=== PATIENT | male | born 1930 | race Caucasian/White ===

== ENCOUNTER → 2016-11-11 | Outpatient (CLI) | payer OTHER | LOC: BHFA 16:15 | PROVIDERS: ATTEND Internal Medicine Cardiovascular Disease | DX: R06.00 Dyspnea, unspecified (principal); I10 Essential (primary) hypertension ==

== ENCOUNTER 2017-05-10 11:48 | Emergency (ER) | payer OTHER ==
[2017-05-10 11:57] VITALS: RESP 18
--- NOTE | 2017-05-10 12:57 | EDPHY ---
H & P Stated Complaint: Dx'd with flu last week;still coughing Time Seen by Provider: 05/10/17 12:54 HPI/ROS: CHIEF COMPLAINT: Persistent cough with recent influenza infection HISTORY OF PRESENT ILLNESS: The patient presents to the ED with complaints of persistent cough for the past several days. He was diagnosed with influenza and is currently on Tamiflu. The patient is also using Mucinex and Tessalon Perles. He reports his cough has been worse at night. He denies any pleuritic chest pain, asymmetric calf pain or swelling, edema or additional acute complaints. The patient denies history of significant lung disease. The patient denies any abdominal pain, nausea, vomiting or diarrhea. REVIEW OF SYSTEMS: A comprehensive 10 point review of systems is otherwise negative aside from elements mentioned in the history of present illness. Source: Patient - Medical/Surgical History Hx Asthma: No Hx Chronic Respiratory Disease: No Hx Diabetes: No Hx Cardiac Disease: Yes Hx Renal Disease: No Hx Cirrhosis: No Hx Alcoholism: No Hx HIV/AIDS: No Hx Splenectomy or Spleen Trauma: No Other PMH: Stent x2, DWAIN, Glaucoma, HTN, hearing deficit, PVD, Hyperlipidemia, DWAIN - Social History Smoking Status: Never smoked - Physical Exam Exam: General Appearance: Alert, no distress Eyes: Pupils equal and round no pallor or injection ENT, Mouth: Mucous membranes moist Respiratory: Scant expiratory wheezing Cardiovascular: Regular rate and rhythm Gastrointestinal: Abdomen is soft and nontender, no masses, bowel sounds normal Neurological: A&O, normal motor function, normal sensory exam, normal cranial nerves Skin: Warm and dry, no rashes Musculoskeletal: Neck is supple nontender Extremities: symmetrical, full range of motion Constitutional: Initial Vital Signs Temperature (C) 36.7 C 05/10/17 11:53 Heart Rate 78 05/10/17 11:53 Respiratory Rate 18 05/10/17 11:53 Blood Pressure 158/86 H 05/10/17 11:53 O2 Sat (%) 90 L 05/10/17 11:53 O2 Delivery Mode Room Air Allergies/Adverse Reactions: No Known Allergies Allergy (Verified 05/10/17 11:53) Home Medications: Medication Instructions Recorded Atenolol [Tenormin 25 mg (*)] 12.5 mg PO DAILY 09/14/13 Latanoprost 0.005% [Xalatan 0.005% 1 drops EACHEYE HS 09/14/13 (*)] PARoxetine HCL [Paxil 10mg (*)] 10 mg PO DAILY 09/14/13 Tamsulosin HCl 0.4 mg PO HS 09/14/13 amLODIPine BESYLATE [Norvasc 2.5 2.5 mg PO HS 09/14/13 mg (*)] Acetaminophen [Tylenol 325mg (*)] 650 mg PO Q4 PRN #0 tab 09/15/13 Aspirin EC [Aspirin EC 325 mg (*)] 325 mg PO DAILY #0 tab 09/15/13 Plavix 08/26/14 Albuterol [Ventolin Hfa Inhaler] 2 puffs IH QID PRN #1 mdi 05/10/17 Atorvastatin Calcium [Lipitor 40 40 mg PO 05/10/17 mg (*)] Benzonatate [Tessalon Pearles (RX)] 100 mg PO 05/10/17 Hydrochlorothiazide [HCTZ (*)] 25 mg PO DAILY 05/10/17 Oseltamivir Phosphate [Tamiflu 75 75 mg PO 05/10/17 mg (*)] Testosterone Cypionate [Testone 200 mg IM 05/10/17 Cik] Valsartan [Diovan (*)] 80 mg PO 05/10/17 Medical Decision Making - Diagnostics Imaging Results: Chest x-ray PA lateral: Images reviewed by myself, negative for focal infiltrate. Formal interpretation by Radiology pending. ED Course/Re-evaluation: The patient presents to the ED with cough in the setting of a recently diagnosed influenza infection. There is no evidence of a obvious pneumonia on his chest x-ray. The patient is well-appearing with stable vital signs. He has no hypoxemia. The patient will be discharged home with a prescription for an albuterol inhaler. Differential Diagnosis: Differential diagnosis considered includes asthma, bronchitis, pneumonia Departure - Departure Disposition: Home, Routine, Self-Care Clinical Impression: Acute bronchitis, Influenza Condition: Good Instructions: Influenza (ED) Additional Instructions: 1. Continue your regular medications as prescribed by Dr. Valenzuela. 2. Use albuterol inhaler 2 puffs every 2-4 hours as needed for cough. 3. Return to the emergency department for markedly worsening symptoms or other concerns. Referrals: Darcy Valenzuela MD [Primary Care Provider] - As per Instructions
[2017-05-10 13:29] VITALS: BP 133/87; PULSE 70; TEMP 98.2; O2SAT 93
== END 2017-05-10 13:30 | disposition home or self-care (01) ==
DX: J20.9 Acute bronchitis, unspecified (principal); J11.1 Influenza due to unidentified influenza virus with other respiratory manifestations; I10 Essential (primary) hypertension; Z79.82 Long term (current) use of aspirin

== ENCOUNTER → 2017-10-06 | Outpatient (CLI) | payer OTHER | LOC: BHFA 10:15 | PROVIDERS: ATTEND Nurse Practitioner Adult Health | DX: I25.10 Atherosclerotic heart disease of native coronary artery without angina pectoris (principal); E78.5 Hyperlipidemia, unspecified; I10 Essential (primary) hypertension ==

== ENCOUNTER 2018-02-14 08:15 | Inpatient (IN) | payer OTHER ==
--- NOTE | 2018-02-14 08:19 | EDPHY ---
H & P Time Seen by Provider: 02/14/18 08:17 HPI/ROS: CHIEF COMPLAINT: Chest tightness HISTORY OF PRESENT ILLNESS: Patient has been having intermittent left shoulder for the past 2 weeks. He thought it was due to using exercise machines at the gym, he goes there about twice a week to the [facility]. It is intermittent and not necessarily related to movement. Last night before midnight he tried to go to sleep but developed substernal chest pressure which kept him awake all night. Was associated with some extension of his left shoulder symptoms down his arm toward his hand. Not associated with coughing or change in his respiratory status or exertional shortness of breath. No nausea or vomiting or abdominal symptoms. On my evaluation the patient says his symptoms are pretty much gone. They were moderate last night but now almost 0. REVIEW OF SYSTEMS: Eye: no change in vision ENT: no sore throat Cardiac: No palpitations or syncope Pulmonary: No cough or hemoptysis Abdomen: no vomiting, diarrhea, abdominal pain Musculoskeletal: no back pain Skin: no rash Neuro: no headache Constitutional: no fever : no urinary symptoms A comprehensive 10 point review of systems is otherwise negative aside from elements mentioned in the history of present illness. PAST MEDICAL HISTORY: Dr. Mcguire note of 01/10/2015 personally reviewed includes coronary disease, anemia, anxiety, lung cancer, gout, hyperlipidemia, hypertension. Melanoma, left upper lung resection, bilateral hip replacements. LAD stenting in September [address] Viecnte Floyd. Social history: Nonsmoker General Appearance: Alert and conversant, cooperative. Eyes: No scleral icterus. ENT, Mouth: Normal mucous membranes. Respiratory: Normal respiratory effort, breath sounds equal, lungs are clear to auscultation. Speaks in full sentences. Cardiovascular: Regular rate and rhythm. Gastrointestinal: Abdomen is soft and non tender. No epigastric tenderness or Acosta sign. Neurological: Alert, face symmetric, normal motor and sensory in extremities. Skin: Some extremity venous stasis changes on the lower legs. Musculoskeletal: No calf tenderness. No bony tenderness on the left shoulder. Normal range of motion of the left shoulder without pain. Psychiatric: Not agitated. Emergency Department course/MDM: Oral aspirin, EKG and chest x-ray, troponin and D-dimer. 939: d-dimer < 0.1 x age, low pretest clinical suspicion for pulmonary embolism. Admission for risk stratification further evaluation of chest pain in this elderly man with known coronary disease. Smoking Status: Never smoked Constitutional: Initial Vital Signs Temperature (C) 37.5 C 02/14/18 08:22 Heart Rate 90 02/14/18 08:22 Respiratory Rate 16 02/14/18 08:22 Blood Pressure 160/93 H 02/14/18 08:22 O2 Sat (%) 89 L 02/14/18 08:22 O2 Delivery Mode Room Air O2 (L/minute) 2 Allergies/Adverse Reactions: No Known Allergies Allergy (Verified 02/14/18 08:22) Home Medications: Medication Instructions Recorded Atenolol [Tenormin 25 mg (*)] 12.5 mg PO DAILY 09/14/13 Latanoprost 0.005% [Xalatan 0.005% 1 drops EACHEYE HS 09/14/13 (*)] PARoxetine HCL [Paxil 10mg (*)] 10 mg PO DAILY 09/14/13 Tamsulosin HCl 0.4 mg PO HS 09/14/13 amLODIPine BESYLATE [Norvasc 2.5 2.5 mg PO HS 09/14/13 mg (*)] Acetaminophen [Tylenol 325mg (*)] 650 mg PO Q4 PRN #0 tab 09/15/13 Aspirin EC [Aspirin EC 325 mg (*)] 325 mg PO DAILY #0 tab 09/15/13 Plavix 08/26/14 Albuterol [Ventolin Hfa Inhaler] 2 puffs IH QID PRN #1 mdi 05/10/17 Atorvastatin Calcium [Lipitor 40 40 mg PO 05/10/17 mg (*)] Testosterone Cypionate [Testone 200 mg IM 05/10/17 Cik] Valsartan [Diovan (*)] 80 mg PO 05/10/17 Medical Decision Making - Diagnostics EKG Interpretation: 12-lead EKG interpreted by me; official reading is in computer system. My interpretation is sinus rhythm rate 90 with old anterior MT. No acute ST changes. Imaging Results: Imaging Impressions Chest X-Ray 02/14/18 08:43 Impression: 1. No acute process. 2. Stigmata of left lower lobectomy and coronary artery disease, unchanged since April 2017. 3. Chronic mild airways disease. Imaging: I viewed and interpreted images myself Differential Diagnosis: Differential diagnosis considered for chest pain including but not limited to myocardial ischemia, aortic dissection, pericarditis, pulmonary embolus, chest wall pain, pleural inflammation and pulmonary infectious causes. Consult/Admit Bed Type: Diez josé miguel Lara [facility] - Data Points Laboratory Results: Laboratory Results 02/14/18 08:25 18 08:25 02/14/18 02/14/18 02/14/18 08:32 08:25 08:25 WBC RBC Hgb Hct MCV MCH MCHC RDW Plt Count MPV Neut % (Auto) Lymph % (Auto) [place] % (Auto) Eos % (Auto) Baso % (Auto) Nucleat RBC Rel Count Absolute Neuts (auto) Absolute Lymphs (auto) Absolute Monos (auto) Absolute Eos (auto) Absolute Basos (auto) Absolute Nucleated RBC Immature Gran % Immature Gran # D-Dimer 0.87 ug/mLFEU H ug/mLFEU (0.00-0.50) Sodium 137 mEq/L mEq/L (135-145) Potassium 4.5 mEq/L mEq/L (3.3-5.0) Chloride 98 mEq/L mEq/L (97-110) Carbon Dioxide 31 mEq/l mEq/l (22-31) Anion Gap 8 mEq/L mEq/L (6-14) BUN 19 mg/dL mg/dL (7-23) Creatinine 1.1 mg/dL mg/dL (0.7-1.3) Estimated GFR > 60 Glucose 89 mg/dL mg/dL (70-100) Calcium 9.1 mg/dL mg/dL (8.5-10.4) POC Troponin I 0.01 ng/mL ng/mL (0.00-0.08) 02/14/18 08:25 WBC 9.18 10^3/uL 10^3/uL (3.80-9.50) RBC 5.77 10^6/uL 10^6/uL (4.40-6.38) Hgb 18.3 g/dL H g/dL (13.7-17.5) Hct 54.4 % H % (40.0-51.0) MCV 94.3 fL fL (81.5-99.8) MCH 31.7 pg pg (27.9-34.1) MCHC 33.6 g/dL g/dL (32.4-36.7) RDW 14.9 % % (11.5-15.2) Plt Count 208 10^3/uL 10^3/uL (150-400) MPV 10.7 fL fL (8.7-11.7) Neut % (Auto) 69.9 % % (39.3-74.2) Lymph % (Auto) 12.6 % L % (15.0-45.0) [place] % (Auto) 11.4 % % (4.5-13.0) Eos % (Auto) 4.8 % % (0.6-7.6) Baso % (Auto) 0.9 % % (0.3-1.7) Nucleat RBC Rel Count 0.5 % H % (0.0-0.2) Absolute Neuts (auto) 6.41 10^3/uL 10^3/uL (1.70-6.50) Absolute Lymphs (auto) 1.16 10^3/uL 10^3/uL (1.00-3.00) Absolute Monos (auto) 1.05 10^3/uL H 10^3/uL (0.30-0.80) Absolute Eos (auto) 0.44 10^3/uL H 10^3/uL (0.03-0.40) Absolute Basos (auto) 0.08 10^3/uL 10^3/uL (0.02-0.10) Absolute Nucleated RBC 0.05 10^3/uL H 10^3/uL (0-0.01) Immature Gran % 0.4 % % (0.0-1.1) Immature Gran # 0.04 10^3/uL 10^3/uL (0.00-0.10) D-Dimer Sodium Potassium Chloride Carbon Dioxide Anion Gap BUN Creatinine Estimated GFR Glucose Calcium POC Troponin I Medications Given: Discontinued Medications Aspirin (Aspirin) 324 mg PO EDNOW ONE Stop: 02/14/18 08:44 Last Admin: 02/14/18 08:46 Dose: 324 mg Point of Care Test Results: Chemistry 02/14/18 08:32 POC Troponin I 0.01 ng/mL ng/mL (0.00-0.08) Departure - Departure Disposition: [facility] Inpatient Acute Clinical Impression: Chest pain Condition: Good Referrals: Patient,NotPresent [Primary Care Provider] - As per Instructions
[2018-02-14] MEDS ORDERED: ASPIRIN 81 MG CHEWABLE TAB PO ONE (08:43)
--- NOTE | 2018-02-14 08:48 | CPEKG ---
Test Reason : OPEN Blood Pressure : / mmHG Vent. Rate : 090 BPM Atrial Rate : 090 BPM P-R Int : 169 ms QRS Dur : 081 ms QT Int : 307 ms P-R-T Axes : 072 032 057 degrees QTc Int : 376 ms Sinus rhythm Anteroseptal infarct, old Confirmed by Pedro Barnard ([id number]) on 02/14/2018 8:47:03 AM Referred By: Confirmed By:Pedro Barnard
[2018-02-14 09:02] LABS: PLATELET COUNT 208 10^3/uL (150-400)
[2018-02-14] MEDS ORDERED: ACETAMINOPHEN 325 MG TAB PO PRN (15:22)
--- NOTE | 2018-02-14 15:30 | PDGENHP ---
History and Physical - History of Present Illness 87 year old male with pmh of CAD status post multiple stents, HTN, BPH, DWAIN on CPAP, who presents to the ER with complaints of chest pain since the night before. He says that he has had some left shoulder pain for which he has been seeing physical therapy for the last few weeks. Then last night, while in bed he developed a midsternal chest pain that came on suddenly. He said that the pain was located in the middl eof his chest and at times radiated to his left arm. He rated the pain at a 4/10 in severity. The pain was constant. He felt that lying on his side seemed to relieve the pain somewhat. Nothing seemed to make the pain worse. He described the pain as a pressure type of pain. It did not feel like previous episodes of chest pain that he has had. He feels that the pain is much less at this point. he denied any new onset sob, cough, fevers , abdominal pain, Nausea or vomiting. His did mention that he has been more fatigued for the last few weeks but he has not had worsening erin. History Information - Allergies/Home Medication List Allergies/Adverse Reactions: No Known Allergies Allergy (Verified 02/14/18 08:22) Home Medications: Atenolol [Tenormin 25 mg (*)] 12.5 mg PO DAILY 09/14/13 [Last Taken 02/14/18] Latanoprost 0.005% [Xalatan 0.005% (*)] 1 drops EACHEYE HS 09/14/13 [Last Taken 02/13/18] PARoxetine HCL [Paxil 10mg (*)] 10 mg PO DAILY 09/14/13 [Last Taken 02/14/18] Tamsulosin HCl 0.4 mg PO HS 09/14/13 [Last Taken 02/13/18] amLODIPine BESYLATE [Norvasc 2.5 mg (*)] 2.5 mg PO HS 09/14/13 [Last Taken 02/13] Atorvastatin Calcium [Lipitor 40 mg (*)] 40 mg PO HS 05/10/17 [Last Taken ] Testosterone Cypionate [Testone Cik] 100 mg IM [id number] 05/10/17 [Last Taken ] Valsartan [Diovan (*)] 80 mg PO HS 05/10/17 [Last Taken 02/13/18] Aspirin EC [Aspirin EC 81 mg (*)] 81 mg PO DAILY 02/14/18 [Last Taken 02/14/18] C/E/Zn/Cu/OM3/DHA/EPA/LUT/ZEAX [Preservision Areds 2 Softgel] 1 each PO BID 05/03 [Last Taken Unknown] Chlorthalidone [Chlorthalidone 25 mg (*)] 25 mg PO DAILY 02/14/18 [Last Taken ] Clopidogrel Bisulfate [Clopidogrel] 75 mg PO DAILY 02/14/18 [Last Taken 02/14/18 ] I have personally reviewed and updated: family history, medical history, social history, surgical history - Past Medical History coronary artery disease (bph), cancer, glaucoma, hypertension - Social History Smoking Status: Never smoked Review of Systems Review of Systems: ROS: 10pt was reviewed & negative except for what was stated in HPI & below Physical Exam Physical Exam: Temp Pulse Resp BP Pulse Ox 36.7 C 72 16 134/70 H 92 02/14/18 15:12 02/14/18 15:12 02/14/18 15:12 02/14/18 15:12 02/14/18 15:12 O2 (L/minute) 2 Constitutional: no apparent distress Eyes: PERRL Ears, Nose, Mouth, Throat: moist mucous membranes Cardiovascular: regular rate and rhythym, no murmur, rub, or gallop Respiratory: no respiratory distress, clear to auscultation Gastrointestinal: normoactive bowel sounds, soft, non-tender abdomen, no palpable masses Skin: warm, normal color, no rashes or abrasions Musculoskeletal: full muscle strength Neurologic: AAOx3, CN II-XII Intact Psychiatric: interacting appropriately Lymph, Heme, Immunologic: no cervical LAD Lab Data & Imaging Review 02/14/18 08:25 02/14/18 08:25 WBC 9.18 10^3/uL (3.80-9.50) 02/14/18 08:25 RBC 5.77 10^6/uL (4.40-6.38) 02/14/18 08:25 Hgb 18.3 g/dL (13.7-17.5) H 02/14/18 08:25 Hct 54.4 % (40.0-51.0) H 02/14/18 08:25 MCV 94.3 fL (81.5-99.8) 02/14/18 08:25 MCH 31.7 pg (27.9-34.1) 02/14/18 08:25 MCHC 33.6 g/dL (32.4-36.7) 02/14/18 08:25 RDW 14.9 % (11.5-15.2) 02/14/18 08:25 Plt Count 208 10^3/uL (150-400) 02/14/18 08:25 MPV 10.7 fL (8.7-11.7) 02/14/18 08:25 Neut % (Auto) 69.9 % (39.3-74.2) 02/14/18 08:25 Lymph % (Auto) 12.6 % (15.0-45.0) L 02/14/18 08:25 [place] % (Auto) 11.4 % (4.5-13.0) 02/14/18 08:25 Eos % (Auto) 4.8 % (0.6-7.6) 02/14/18 08:25 Baso % (Auto) 0.9 % (0.3-1.7) 02/14/18 08:25 Nucleat RBC Rel Count 0.5 % (0.0-0.2) H 02/14/18 08:25 Absolute Neuts (auto) 6.41 10^3/uL (1.70-6.50) 02/14/18 08:25 Absolute Lymphs (auto) 1.16 10^3/uL (1.00-3.00) 02/14/18 08:25 Absolute Monos (auto) 1.05 10^3/uL (0.30-0.80) H 02/14/18 08:25 Absolute Eos (auto) 0.44 10^3/uL (0.03-0.40) H 02/14/18 08:25 Absolute Basos (auto) 0.08 10^3/uL (0.02-0.10) 02/14/18 08:25 Absolute Nucleated RBC 0.05 10^3/uL (0-0.01) H 02/14/18 08:25 Immature Gran % 0.4 % (0.0-1.1) 02/14/18 08:25 Immature Gran # 0.04 10^3/uL (0.00-0.10) 02/14/18 08:25 D-Dimer 0.87 ug/mLFEU (0.00-0.50) H 02/14/18 08:25 Sodium 137 mEq/L (135-145) 02/14/18 08:25 Potassium 4.5 mEq/L (3.3-5.0) 02/14/18 08:25 Chloride 98 mEq/L (97-110) 02/14/18 08:25 Carbon Dioxide 31 mEq/l (22-31) 02/14/18 08:25 Anion Gap 8 mEq/L (6-14) 02/14/18 08:25 BUN 19 mg/dL (7-23) 02/14/18 08:25 Creatinine 1.1 mg/dL (0.7-1.3) 02/14/18 08:25 Estimated GFR > 60 02/14/18 08:25 Glucose 89 mg/dL (70-100) 02/14/18 08:25 Calcium 9.1 mg/dL (8.5-10.4) 02/14/18 08:25 POC Troponin I 0.01 ng/mL (0.00-0.08) 02/14/18 08:32 Visualized and Interpreted Chest x-ray results: Yes Chest X-Ray results: no infiltrate Visualized and Interpreted imaging results: Yes EKG Interpretation: Positive for: normal sinsus rhythm Assessment & Plan Assessment: Chest pain (Acute)- Heart score at least 4, warranting further evaluation. CXR reviewed and no evidence of acute abnormality. ECG with NSR and no acute St/T wave changes. Troponin initially negative as well. examination reassuring and vitals stable as well. -admit telemetry -cycle troponins -check BNP -lexiscan with MPI in am, as patient unable to ambulate, has history of prior stents, and uses oxygen with any exertion. -consult cardiology if abnormal stress test. follows with Dr. Floyd -cardiac diet, I/O, CAD- history of multiple stents placed, Follows with Dr. Floyd from [facility]. On ARB, Plavix, asa, lipitor, atenolo. continue while in house HTN- on chlorthalidone, valsartan, norvasc and atenolol. BPH-on Flomax, should be fine to resume here Glaucoma- cont latanoprost Depression- on paxil. DWAIN- on CPAP with 2.5 litesr at HS. Will order while here.
--- NOTE | 2018-02-14 17:50 | CPEKG ---
Test Reason : OPEN Blood Pressure : / mmHG Vent. Rate : 075 BPM Atrial Rate : 075 BPM P-R Int : 171 ms QRS Dur : 079 ms QT Int : 325 ms P-R-T Axes : 080 069 055 degrees QTc Int : 363 ms Sinus rhythm Possible left atrial abnormality Can't entirely rule out old anteroseptal [place], but more likely lead positioning Confirmed by David Martinez ([id number]) on 02/14/2018 5:49:51 PM Referred By: Confirmed By:David Martinez
[2018-02-14] MEDS: TAMSULOSIN HCL 0.4 MG CAP PO SCH (20:47)
[2018-02-14] MEDS: ATORVASTATIN CALCIUM 40 MG TAB PO SCH (20:47)
[2018-02-14] MEDS: PRESERVISION AREDS2 FORMULA EYE VIT 1 EACH PO SCH (20:47)
[2018-02-14] MEDS: LATANOPROST 0.005% 2.5 ML OPHT DROPS EACHEYE SCH (20:48)
[2018-02-14] MEDS: VALSARTAN 80 MG TAB PO SCH (22:23)
[2018-02-15] MEDS: ATENOLOL 25 MG TAB PO SCH (09:01)
[2018-02-15] MEDS: CLOPIDOGREL BISULFATE 75 MG TAB PO SCH (09:01)
[2018-02-15] MEDS: PARoxetine HCL 10 MG TAB PO SCH (09:01)
[2018-02-15] MEDS: ASPIRIN EC 81 MG TAB PO SCH (09:02)
[2018-02-15] MEDS: PRESERVISION AREDS2 FORMULA EYE VIT 1 EACH PO SCH ×2 (09:02→22:39)
[2018-02-15] MEDS ORDERED: REGADENOSON 0.4 MG/5 ML SYR IVP ONE (09:54)
--- NOTE | 2018-02-15 11:02 | CPR ---
DATE OF PROCEDURE: 02/15/2018 PROCEDURE: Lexiscan nuclear stress test. INDICATION: The patient is an 87-year-old male with a history of coronary artery disease and prior s tenting. He developed left-sided chest pain, which was sharp and a pressure in nature. He presented to the hospital for further assessment. He is unable to recall if this is similar to his prior brigitte nal discomfort. PROCEDURE IN DETAIL: Consent was obtained and the patient was placed on continuous telemetry. His r esting EKG reveals normal sinus rhythm with a heart rate of 79. There are anterior septal Q-waves co nsistent with a prior anterior septal infarct. The patient was infused with Lexiscan and complained of woozziness. He was monitored on telemetry and remained in normal sinus rhythm without any signifi cant ST-T wave changes. He had occasional PACs with the infusion. He was given caffeine in the vane very phase with a resolution in his symptoms. His blood pressure at rest was 140/80 and remained sta ble throughout the procedure. PLAN: Await nuclear images. /[id number]/MODL
[2018-02-15] MEDS: CHLORTHALIDONE 25 MG TAB PO SCH (11:39)
[2018-02-15] MEDS: ENOXAPARIN 40 MG/0.4 ML SYR SC SCH (11:41)
--- NOTE | 2018-02-15 12:48 | ASMTCMCOM ---
CM Note CM Note Notes: Pt discussed in rounds. CM met with pt and , Stephanie to discuss discharge needs. Pt agreed to [facility] RN and therapies, anticipating need for PT. is in agreement. CM faxed referral to [facility] and followed up with phone call.Pt accepted by [facility]. Pt lives at [facility] with his . Recieves Meals, housekeeping, and transportation. PCP is Dr. Darcy Valenzuela. Pt reports outpatient PT at [facility], but not currently. CM to follow. Plan: [facility] RN/PT Date Signed: 02/15/2018 12:47 PM Electronically Signed By:LUBA Alarcon
[2018-02-15] MEDS ORDERED: NITROGLYCERIN 2% 1 GM PACKET TP SCH (14:00)
[2018-02-15] MEDS: ISOSORBIDE MONONITRATE 30 MG TAB.SR PO SCH (16:53)
--- NOTE | 2018-02-15 17:14 | GCON ---
CARDIAC CONSULTATION DATE OF CONSULTATION: 02/15/2018 CHIEF COMPLAINT: Chest pain. HISTORY OF PRESENT ILLNESS: The patient is an 87-year-old male with a history of hypertension, hyper lipidemia, and coronary artery disease with multiple interventions to his LAD who presents with chest pain. He has a history of chronic angina, which occurs with moderate to heavy physical exertion. I t has been present for years. Approximately 2 weeks ago, he developed back pain, which he thought wa s musculoskeletal. He began working with physical therapy and soon thereafter developed central ches t discomfort the night prior to admission. His discomfort lasted all night and may have radiated sli ghtly to his left arm. This was different than his prior angina pain. He had a nuclear stress test on admission, which showed a small anterior defect consistent with mild ischemia with mild hypokinesis. His ejection fraction was normal at 65%. His troponins are negative x3. EKGs are unchanged. Upon further questioning with his , he also noted some fatigue, which has been present for the last 2 weeks. He has also noted that he has had some mild exercise intolera nce. His cardiac history began in 2000, at which time he had stenting to the proximal left anterior descen ding artery. In 2002, he returned back with chest pain and had a cutting balloon angioplasty. His l ast intervention was by Dr. Vicente Floyd in September 2013, at which time, his LAD was stented for in-s tent restenosis. PAST MEDICAL HISTORY: Coronary artery disease as stated above, hypertension, hyperlipidemia, OCD, ob structive sleep apnea on CPAP, BPH, hypogonadism, and lung cancer. FAMILY HISTORY: Noncontributory. SOCIAL HISTORY: He is currently accompanied by his . He denies any tobacco use. He is an activ e individual, trying to exercise for an hour multiple times a week. He has known chronic angina. HOME MEDICATIONS: Flomax 0.4 mg at bedtime, Paxil 10 mg daily, Norvasc 2.5 mg daily, Xalatan eyedrop s at bedtime, atenolol 12.5 mg daily, Tylenol p.r.n., Diovan 80 mg at bedtime, testosterone 100 mg IM every 3 weeks, Lipitor 40 mg at bedtime, chlorthalidone 25 mg daily, Plavix 75 mg daily, aspirin 81 mg daily. ALLERGIES: No known drug allergies. REVIEW OF SYSTEMS: A 10-point review of systems is negative, except for what is stated in the H and P. PHYSICAL EXAMINATION: GENERAL: Patient appears in no acute distress. VITAL SIGNS: Blood pressure 155/83, heart rate 76, oxygen saturation of 99% on room air afebrile. HEENT: Eyes: Conjunctiva wesley r. No obvious abnormalities. NECK: No carotid bruits or JVD present. LUNGS: Clear to auscultatio n. No wheezes, rhonchi, or crackles auscultated. CARDIAC: Regular rate and rhythm with a 1 to 2/6 systolic murmur. ABDOMEN: Soft, nontender, nondistended. No organomegaly present. EXTREMITIES: P alpable pulses bilaterally without any evidence of edema. SKIN: No obvious rashes or ecchymosis brooks ntified. NEUROLOGIC: Nonfocal. PSYCHIATRIC: Mood and affect appropriate. DIAGNOSTIC DATA: Troponin negative x3. BMP within normal limits. Chest x-ray was negative for acute cardiopulmonary disease. Nuclear stress test suggests a small reversible defect involving the anterior wall along the mid vent ricle suggestive of mild ischemia. There is mild hypokinesis with an ejection fraction of 65%. ASSESSMENT: The patient is an 87-year-old male with a history of hypertension, hyperlipidemia, and c oronary artery disease with multiple interventions in the past, who presents with chest pain. PLAN: The patient has an extensive history of coronary artery disease with multiple interventions to the left anterior descending. He now presents with chest pain, which was present throughout the nig ht prior to admission. His troponins have been negative, but his nuclear stress test did suggest a m ild anterior defect consistent with ischemia. Medical therapy versus angiogram were discussed with t claire patient today. He would like to avoid invasive procedures if possible. He is already on decent m edical therapy with Norvasc, atenolol, aspirin and Plavix. He is not on antianginal agent; therefore , Imdur 30 mg b.i.d. daily will be added to his medical regimen. If he continues to have chest disco mfort despite antianginal treatment, then consideration for an angiogram will be done. His hypertens ion is well controlled on his current medical regimen. He also has history of hyperlipidemia and is on statin therapy. Fasting lipid profile is pending for tomorrow. Dr. Mancera was involved in the patient's care and plan today. /[id number]/MODL
--- NOTE | 2018-02-15 18:17 | HOSPPROG ---
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 -continue CPAP * Hypoxia - suspect may be chronic -has home O2 but doesn't wear it all the time -polycythemia on admission Subjective: Still with intermittent CP today, none now Objective: Vital Signs Temp Pulse Resp BP Pulse Ox 36.6 C 76 18 155/83 H 99 02/15/18 15:47 02/15/18 15:47 02/15/18 15:47 02/15/18 15:47 02/15/18 15:47 02/14/18 02/15/18 02/16/18 05:59 05:59 05:59 Intake Total 320 Balance 320 nuc stress test - positive for anterior ischemia Laboratory Tests 02/14/18 02/14/18 02/14/18 08:25 08:25 16:44 Hct 54.4 H D-Dimer 0.87 H Troponin I < 0.012 02/14/18 02/15/18 21:45 03:40 Hct D-Dimer Troponin I < 0.012 < 0.012 - Physical Exam Constitutional: no apparent distress, appears nourished, not in pain Cardiovascular: regular rate and rhythym, no murmur, rub, or gallop Respiratory: no respiratory distress, no rales or rhonchi, clear to auscultation Gastrointestinal: normoactive bowel sounds, soft, non-tender abdomen, no palpable masses Skin: no rashes or abrasions, no fluctuance, no induration Neurologic: AAOx3, sensation intact bilaterally Psychiatric: interacting appropriately, not anxious, not encephalopathic, thought process linear ICD10 Worksheet Patient Problems: Problems Problem Status Onset Coronary artery disease Acute Presence of stent in anterior descending branch of left coronary artery Acute Chest pain Acute
[2018-02-15] MEDS: ATORVASTATIN CALCIUM 40 MG TAB PO SCH (22:39)
[2018-02-15] MEDS: LATANOPROST 0.005% 2.5 ML OPHT DROPS EACHEYE SCH (22:39)
[2018-02-15] MEDS: TAMSULOSIN HCL 0.4 MG CAP PO SCH (22:40)
[2018-02-15] MEDS: VALSARTAN 80 MG TAB PO SCH ×2 (23:28→23:35)
[2018-02-16 04:28] LABS: PLATELET COUNT 176 10^3/uL (150-400)
[2018-02-16] MEDS: ISOSORBIDE MONONITRATE 30 MG TAB.SR PO SCH ×2 (07:50→16:22)
--- NOTE | 2018-02-16 08:28 | PDMN ---
Medical Necessity Medical necessity: MCG M40 Angina: 87 yo presents w/ CP. Initially OBS for cardiac workup. + stress test w/ unstable angina, anterior ischemia. Cardiology consulted. Pt still w/ intermittent CP. Cardiac cath is an option, pt requesting medical management at this time. If CP cont, will consider cath. Requires additional MN for medical management of the above, ongoing tele monitoring. Hx CAD status post multiple stents, HTN, BPH, DWAIN on CPAP, lung ca , obesity. Change to IP status 02/15/18 @1341 per MD order
[2018-02-16] MEDS: PRESERVISION AREDS2 FORMULA EYE VIT 1 EACH PO SCH ×2 (08:42→20:01)
[2018-02-16] MEDS: ATENOLOL 25 MG TAB PO SCH (08:42)
[2018-02-16] MEDS: ENOXAPARIN 40 MG/0.4 ML SYR SC SCH (08:42)
[2018-02-16] MEDS: CHLORTHALIDONE 25 MG TAB PO SCH (08:48)
[2018-02-16] MEDS: ASPIRIN EC 81 MG TAB PO SCH (08:49)
[2018-02-16] MEDS: CLOPIDOGREL BISULFATE 75 MG TAB PO SCH (08:49)
[2018-02-16] MEDS: PARoxetine HCL 10 MG TAB PO SCH (08:49)
--- NOTE | 2018-02-16 11:04 | PDCARPN ---
Cardiology Progress Note Chief Complaint: Chest pressure Assessment/Plan: Assessment: Wilder is a 87 y/o M with a history of HTN, HLP, chronic angina, and CAD with multiple interventions to the LAD. His last cath was in 2013 at which time his LAD was stented for instent restenosis. Wilder presented to the ER with central chest pressure which occurred at night and persisted through the night. His troponin have been negative but a nuclear stress test showed mild anterior ischemia. He preferred medical therapy and therefore was started on Imdur last night. He had one episode of chest pressure just after waking up this morning which lasted for 5 minutes. Prior to admission he was also complaining of fatigue and exercise intolerance which as been present for 2-3 weeks. Plan: 1. CAD with progressive angina- He prefers medical therapy and therefore was started on Imdur. He overall feels better but did have angina this morning at rest. He will continue Imdur and if he has recurrent discomfort in the next 24 hours I would recommend a angiogram. He will continue Lipitor, Aspirin, Plavix , Atenolol, and Norvasc. Ambulate with PT today. 2. HLP- LDL is 85. Continue Lipitor 40. 3. HTN- well controlled on his current regimen. Monitor for hypotension in the setting of adding Imdur. 02/16/18 11:13 Subjective: c/o 5 minutes of chest pressure upon waking this morning. He denies any SOB or diaphoresis. Reviewed/Discussed With: hospitalist Objective: Vital Signs (8 Hrs) Temp Pulse Resp BP Pulse Ox 02/16/18 08:48 130/67 H 02/16/18 08:42 79 130/67 H 02/16/18 08:01 94 02/16/18 07:03 36.7 C 77 22 H 118/68 97 02/16/18 04:00 36.6 C 62 16 117/64 99 Intake/Output (24 Hrs) 02/15/18 02/16/18 02/17/18 05:59 05:59 05:59 Intake Total 520 Output Total 200 Balance 520 -200 Intake: Oral (ml) 520 IV Intake (ml) 0 Output: Urine (ml) 200 Urinal 200 Other: Number of Voids Toilet 1 Number of Stools Toilet 1 Result Diagrams: 02/16/18 03:36 12/02/18 08:25 Telemetry: NSR with PAC's and PVC's. - Physical Exam Constitutional: healthy appearing, no apparent distress Cardiovascular: regular rate and rhythm, systolic murmur Peripheral Pulses: 2+: dorsalis-pedis (R), dorsalis-pedis (L) Respiratory: clear to auscultate bilat Skin: no edema Neurologic: AAOx3 ICD10 Worksheet Patient Problems: Problems Problem Status Onset Chest pain Acute Coronary artery disease Acute Presence of stent in anterior descending branch of left coronary artery Acute
--- NOTE | 2018-02-16 17:37 | HOSPPROG ---
Hospitalist Progress Note Assessment/Plan: 87yo M with CAD and several revascularizations presents with chest pain. 1. Progressive chest pain -trops/ecgs negative -positive stress test - cardiology consulted - d/w Elena Carrasco -cardiac cath offered - patient would like to try medical management -continue imdur. not much room to increase dose given low PB. if chest pain overnight, strong consideration for cath in AM 2. CAD - s/p multiple interventions to LAD -ASA, Plavix, statin 3. HTN -BP low now with imdur, monitor 4. 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 Hypoxia - suspect may be chronic -has home O2 but doesn't wear it all the time -polycythemia on admission VTE ppx: SCDs Diet: will make NPO at midnight in case he gets cath'd Code: full Dispo: Remain inpatient Subjective: Had some chest discomfort while walking this AM but not same as what brought him into hospital. Objective: Vital Signs Temp Pulse Resp BP Pulse Ox 36.9 C 73 18 113/59 L 95 02/16/18 16:00 02/16/18 12:00 02/16/18 16:00 02/16/18 16:00 02/16/18 16:00 Laboratory Results 02/16/18 03:36 02/15/18 02/16/18 02/17/18 05:59 05:59 05:59 Intake Total 520 Output Total 200 Balance 520 -200 - Physical Exam Constitutional: no apparent distress, appears nourished, not in pain Eyes: PERRL, anicteric sclera, EOMI Ears, Nose, Mouth, Throat: moist mucous membranes, hearing normal, ears appear normal, no oral mucosal ulcers Cardiovascular: regular rate and rhythym, systolic murmur, No edema Respiratory: no respiratory distress, no rales or rhonchi, clear to auscultation Gastrointestinal: normoactive bowel sounds, soft, non-tender abdomen, no palpable masses Genitourinary: no bladder fullness, no bladder tenderness, no renal bruits Skin: no rashes or abrasions, no fluctuance, no induration Musculoskeletal: full muscle strength, no muscle tenderness, normal joint ROM Neurologic: AAOx3, sensation intact bilaterally Psychiatric: interacting appropriately, not anxious, not encephalopathic, thought process linear ICD10 Worksheet Patient Problems: Problems Problem Status Onset Chest pain Acute Coronary artery disease Acute Presence of stent in anterior descending branch of left coronary artery Acute
[2018-02-16] MEDS: LATANOPROST 0.005% 2.5 ML OPHT DROPS EACHEYE SCH (20:01)
[2018-02-16] MEDS: ATORVASTATIN CALCIUM 40 MG TAB PO SCH (20:01)
[2018-02-16] MEDS: TAMSULOSIN HCL 0.4 MG CAP PO SCH (20:01)
[2018-02-16] MEDS: VALSARTAN 80 MG TAB PO SCH (20:08)
[2018-02-17] MEDS: ISOSORBIDE MONONITRATE 30 MG TAB.SR PO SCH ×2 (08:03→17:19)
[2018-02-17] MEDS: ASPIRIN EC 81 MG TAB PO SCH (09:24)
[2018-02-17] MEDS: PRESERVISION AREDS2 FORMULA EYE VIT 1 EACH PO SCH ×2 (09:24→20:17)
[2018-02-17] MEDS: CLOPIDOGREL BISULFATE 75 MG TAB PO SCH (09:24)
[2018-02-17] MEDS: PARoxetine HCL 10 MG TAB PO SCH (09:24)
[2018-02-17] MEDS: ATENOLOL 25 MG TAB PO SCH (09:25)
[2018-02-17] MEDS ORDERED: TEMAZEPAM 15 MG CAP PO PRN (09:28)
[2018-02-17] MEDS ORDERED: diphenhydrAMINE 25 MG CAP PO ONE ×2 (09:28→11:51)
[2018-02-17] MEDS ORDERED: FAMOTIDINE 20 MG TAB PO ONE (09:28)
[2018-02-17] MEDS ORDERED: NITROGLYCERIN 0.4 MG BTL SL PRN (09:28)
[2018-02-17] MEDS: CHLORTHALIDONE 25 MG TAB PO SCH (09:29)
--- NOTE | 2018-02-17 09:54 | HOSPPROG ---
Hospitalist Progress Note Assessment/Plan: 87yo M with CAD and several revascularizations presents with chest pain. 1. Progressive chest pain - several more episodes overnight, hemodynamics stable and tele quiet -trops/ecgs negative -positive stress test - cardiology consulted -patient now amenable to cardiac cath, hopefully able to get today, cardiology aware, NPO -started in imdur this admit with minimal benefit 2. CAD - s/p multiple interventions to LAD -ASA, Plavix, statin 3. HTN -BP low but stable with addition of imdur, monitor 4. 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 Hypoxia - suspect may be chronic, on 2L -has home O2 but doesn't wear it all the time -polycythemia on admission VTE ppx: SCDs Diet: NPO until cath Code: full Dispo: Remain inpatient. ADD unclear, awaiting cardiac cath. Subjective: Had 2-3 episodes of substernal chest pressure while at rest last night. No associated nausea/diaphoresis. He has some elbow pain this AM, not sure if associated. He is now agreeable to left heart cath. Discussed with Elena Carrasco of cardiology. Objective: Vital Signs Temp Pulse Resp BP Pulse Ox 36.7 C 65 14 126/69 H 87 L 02/17/18 08:00 02/17/18 08:00 02/17/18 08:00 02/17/18 08:03 02/17/18 08:00 Laboratory Results 02/16/18 03:36 02/16/18 02/17/18 02/18/18 05:59 05:59 05:59 Intake Total 520 320 Output Total 1200 575 Balance 520 -880 -575 - Physical Exam Constitutional: no apparent distress, appears nourished, not in pain Eyes: PERRL, anicteric sclera, EOMI Ears, Nose, Mouth, Throat: moist mucous membranes, hearing normal, ears appear normal, no oral mucosal ulcers Cardiovascular: regular rate and rhythym, no murmur, rub, or gallop Respiratory: no respiratory distress, no rales or rhonchi, clear to auscultation Gastrointestinal: normoactive bowel sounds, soft, non-tender abdomen, no palpable masses Genitourinary: no bladder fullness, no bladder tenderness, no renal bruits Skin: no rashes or abrasions, no fluctuance, no induration Musculoskeletal: full muscle strength, no muscle tenderness, normal joint ROM Neurologic: AAOx3, sensation intact bilaterally Psychiatric: interacting appropriately, not anxious, not encephalopathic, thought process linear ICD10 Worksheet Patient Problems: Problems Problem Status Onset Chest pain Acute Coronary artery disease Acute Presence of stent in anterior descending branch of left coronary artery Acute
[2018-02-17 11:18] LABS: PLATELET COUNT 180 10^3/uL (150-400)
[2018-02-17] MEDS ORDERED: FAMOTIDINE 20 MG TAB ONE (11:51)
[2018-02-17] MEDS ORDERED: ASPIRIN EC 325 MG TAB PO ONE ×2 (11:51→12:50)
[2018-02-17] MEDS ORDERED: DIAZEPAM 5 MG TAB ONE (11:52)
[2018-02-17 12:21] LABS: INR 1.01 (0.83-1.16); PROTIME(PATIENT) 13.5 SEC (12.0-15.0)
[2018-02-17] MEDS ORDERED: ASPIRIN 325 MG TAB ONE (12:30)
--- NOTE | 2018-02-17 12:33 | PDPROPOC ---
Sedation Plan of Care Sedation Plan of Care: vital signs stable, mental status noted, patient educated of risks, benefits, alternatives, patient can tolerate sedation ASA Classification: ASA 3 Planned drugs: fentanyl, midazolam Mallampati Score: Class 2 Mallampati Reference Image: Patient passed 3-3-2 rule?: Yes (high risk because of age)
--- NOTE | 2018-02-17 12:33 | PDHPUP ---
History & Physical Update H&P update statement: This history and physical update is based on an assessment of the patient which was completed after admission or registration (within 24 hours), but prior to the surgery/procedure. H&P update: H&P reviewed & patient examined, no change in patient's condition since H&P completed
[2018-02-17] MEDS ORDERED: ASPIRIN 325 MG TAB PO STA (12:40)
[2018-02-17] MEDS ORDERED: LIDOCAINE 1% 300 MG/30 ML SDV ONE (13:00)
[2018-02-17] MEDS ORDERED: HEPARIN 10,000 UNIT/10 ML MDV (1,000 UNIT/ML) ONE (13:01)
[2018-02-17] MEDS ORDERED: VERAPAMIL 5 MG/2 ML VIAL ONE (13:01)
[2018-02-17] MEDS ORDERED: fentaNYL 100 MCG/2 ML INJ ONE (13:01)
[2018-02-17] MEDS ORDERED: IOPAMIDOL (ISOVUE-370) 150 ML BTL IV ONE (13:01)
[2018-02-17] MEDS ORDERED: MIDAZOLAM 2 MG/2 ML VIAL ONE (13:01)
--- NOTE | 2018-02-17 13:43 | PDDXCAT ---
Diagnostic Cath Note - . Date: 02/17/18 Dietetic Assistant: Fiordaliza Indication: CCC Class III and IV angina on medical treatment - Procedure Access: right groin Procedure: left heart catheterization, coronary angiography - Materials Left Heart Cath size: 6F Left Heart Cath materials: JL4.0, JR4.0 - Findings-Left Heart Catheterization LM: 8 mm in size and short bifurcates into the lad and circumflex lesion. LAD: The left anterior descending is 3mm in size. There is previous stent implantation in the proximal segment of the artery with 2 overlapping stents. There is also ostial narrowing at the first two diagonals and the first septal branch which actually looks better than at the time of the most recetn stent implantation. This was previously noted on the patients previous cardiac catheterization and stent implantation. There is JOHN III flow and no flow- limiting obstruction. LCX: The left circumflex is 3 mm in size and is free of flow limiting disease. RCA: The right coronary is 5mm in size and dominant. The vessel gives rise to the posterior descending artery and posterolateral ventricular vessel. There is 30% stenosis in the proximal right artery EDP: 26mmHg LVEF: 60% Wall motion: On the LV gram there is normal LV systolic function. The EF is 60% . There are no resting segmental wall motion abnormalities. 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 There is no gradient on pullback across the aortic valve. There is no evidence of analilia dissection or aneurysm formation. There is no significant mitral regurgitation. - Findings-Right Heart Catheterization AO: 117/83 Complications: NONE Estimated blood loss: <50ml Closure method: manual pressure Assessment: The patient has [place] vessel coronary disease and prior stenting of the LAD. Both stents are widely patent without evidence of flow-limiting obstruction of the LAD or significant in stent restenosis. There is no evidence of new flow limiting disease in the other coronary branches. Plan: The patient has non-flow limiting coronary disease that should be treated medically to achieve a non-HDL Cholesterol of less than 100 mg/dL and anti platelet therapy with ASA is also recommended specifically a dose of 162 mg per day. I think the patient may benefit from empiric intravenous antiacid therapy to see if that helps his clinical symptoms. If his chest pain is cardiac in origin this is most likely from branch vessel disease that will not be amenable to stenting. Intervention: None Patient Problems: Problems Problem Status Onset Chest pain Acute Coronary artery disease Acute Presence of stent in anterior descending branch of left coronary artery Acute
--- NOTE | 2018-02-17 15:54 | ASMTCMCOM ---
CM Note CM Note Notes: 02/17/2018 Case Management Note Met w/pt today during rounds. Pt to have a heart cath today after abnormal stress test yesterday. Updated [facility]. Case Management d/c poc: [facility] RN PT. Case Management to follow. Date Signed: 02/17/2018 03:54 PM Electronically Signed By:Rhea Turner RN
[2018-02-17] MEDS ORDERED: ATROPINE SULFATE 1 MG/10 ML SYR IVP PRN (16:58)
[2018-02-17] MEDS ORDERED: ONDANSETRON 4 MG/2 ML VIAL IVP PRN (16:58)
[2018-02-17] MEDS: PANTOPRAZOLE SODIUM 40 MG TAB PO SCH (17:20)
[2018-02-17] MEDS: ATORVASTATIN CALCIUM 40 MG TAB PO SCH (20:17)
[2018-02-17] MEDS: FAMOTIDINE 20 MG/NACL 50 ML IV SCH (20:17)
[2018-02-17] MEDS: TAMSULOSIN HCL 0.4 MG CAP PO SCH (20:17)
[2018-02-18] MEDS: LATANOPROST 0.005% 2.5 ML OPHT DROPS EACHEYE SCH (00:07)
[2018-02-18] MEDS: VALSARTAN 80 MG TAB PO SCH (00:08)
[2018-02-18] MEDS: ISOSORBIDE MONONITRATE 30 MG TAB.SR PO SCH (08:56)
[2018-02-18] MEDS: PARoxetine HCL 10 MG TAB PO SCH (08:56)
[2018-02-18] MEDS: PRESERVISION AREDS2 FORMULA EYE VIT 1 EACH PO SCH (08:56)
[2018-02-18] MEDS: ATENOLOL 25 MG TAB PO SCH (08:56)
[2018-02-18] MEDS: CLOPIDOGREL BISULFATE 75 MG TAB PO SCH (08:57)
[2018-02-18] MEDS: FAMOTIDINE 20 MG/NACL 50 ML IV SCH (08:57)
[2018-02-18] MEDS: CHLORTHALIDONE 25 MG TAB PO SCH (08:57)
[2018-02-18] MEDS: PANTOPRAZOLE SODIUM 40 MG TAB PO SCH (08:57)
[2018-02-18] MEDS: ASPIRIN EC 81 MG TAB PO SCH (08:57)
--- NOTE | 2018-02-18 10:44 | PDCARPN ---
Cardiology Progress Note Chief Complaint: CP Assessment/Plan: Assessment: Wilder is a 87 y/o M with a history of HTN, HLP, chronic angina, and CAD with multiple interventions to the LAD. His last cath was in 2013 at which time his LAD was stented for instent restenosis. Wilder presented to the ER with central chest pressure which occurred at night and persisted through the night. His troponin have been negative but a nuclear stress test showed mild anterior ischemia. He preferred medical therapy and therefore was started on Imdur last night. He had one episode of chest pressure just after waking up this morning which lasted for 5 minutes. Prior to admission he was also complaining of fatigue and exercise intolerance which as been present for 2-3 weeks. A angiogram showed no progression of disease when compared to his angiogram 4 years ago. 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 Plan: 1. CAD with progressive angina- He prefers medical therapy and therefore was started on Imdur. He overall feels better but did have angina this morning at rest. He will continue Imdur and if he has recurrent discomfort in the next 24 hours I would recommend a angiogram. He will continue Lipitor, Aspirin, Plavix , Atenolol, and Norvasc. Ambulate with PT today. No change in the status of his coronaries from 4 years ago. 2. HLP- LDL is 85. Continue Lipitor 40. 3. HTN- well controlled on his current regimen. Monitor for hypotension in the setting of adding Imdur. 4. GERD- He was started on Pepcid last night and he does feel better this morning. Ok to d/c from a cardiac standpoint. He is scheduled to follow up in our office in 1-2 weeks. 7 02/18/18 10:45 Subjective: No CP. He feels better today. Objective: Vital Signs (8 Hrs) Temp Pulse Resp BP Pulse Ox 02/18/18 07:58 36.6 C 68 18 129/65 H 93 02/18/18 04:00 36.6 C 60 12 130/67 H 96 Intake/Output (24 Hrs) 02/17/18 02/18/18 02/19/18 05:59 05:59 05:59 Intake Total 320 490 Output Total 1200 1000 Balance -880 -510 Intake: Oral (ml) 320 490 Output: Urine (ml) 1200 1000 Toilet 250 Urinal 950 1000 Other: Intake Quantity Yes Sufficient Number of Voids Toilet 1 2 Urinal 2 Number of Stools Toilet 1 NSR Result Diagrams: 02/17/18 10:55 02/18/18 04:06 - Physical Exam Constitutional: WDWN Cardiovascular: regular rate and rhythm, no murmurs, no rubs, no gallops Peripheral Pulses: 2+: dorsalis-pedis (R), dorsalis-pedis (L) Respiratory: clear to auscultate bilat Skin: no edema Neurologic: AAOx3 ICD10 Worksheet Patient Problems: Problems Problem Status Onset Chest pain Acute Coronary artery disease Acute Presence of stent in anterior descending branch of left coronary artery Acute
--- NOTE | 2018-02-18 11:30 | PDDCSUM ---
Discharge Summary Discharge Summary: Date of Admission: 02/14/2018 Date of Discharge: 02/17/2018 Disposition: Discharged to home with home health PT and RN. Consultants: cardiology Studies/Procedures: 1. Lexiscan stress w/MPI: Small reversible defect involving the anterior wall suggestive of mild ischemia. 2. Coronary angiogram: [place] vessel coronary disease and prior stenting of the LAD. Both stents are widely patent with no evidence of obstruction of in-stent restenosis. There is no evidence of new flow-limiting disease in the other coronary branches. Discharge Diagnoses: 1. Chest pain, suspect GI related 2. CAD s/p LAD stents 3. HTN 4. HLD 5. DWAIN on CPAP with nocturnal hypoxia 6. Deconditioning Brief Hospital Course: 87yo M with CAD s/p LAD stenting x2, HTN, HLD presented with chest pressure. Serial troponins were negative. A nuclear stress test showed mild anterior ischemia. He initially did not want to proceed with coronary angiography so he was medically managed with initiation of imdur. However, he continued to have some mild chest pain and finally decided on pursuing an angiogram, which showed no new coronary disease to explain his symptoms. 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 He is already on aspirin, plavix, and a high intensity statin for his cardiac disease. He was then started on medications for GERD which improved his symptoms. He was discharged with instructions to start an H2 martine. Medications: Please refer to EMR. I sent a prescription for famotidine 20mg BID to his pharmacy. Follow Up Plan: 1. Monitor chest symptoms on pepcid. Would try to avoid PPI as he is on a P2Y12 inhibitor (plavix). Physical Exam: Vitals and telemetry reviewed. Alert and oriented, RRR without murmur, lungs clear, abdomen soft, no leg edema or JVD.
--- NOTE | 2018-02-18 11:31 | PDIAF ---
- Diagnosis Code Status: Full Code - Medication Management Discharge Medications: electronically signed and located in the Home Medication List. - Orders Services needed: Home Care, Registered Nurse, Physical Therapy Home Care Face to Face: I certify that this patient was under my care and that I had the required [id number] encounter meeting the encounter requirements on the discharge day. My findings support the fact that the patient is homebound as defined in Home Care Face to Face Continued: CMS Chapter 7 Medicare Benefits Manual 30.1.1 , The condition of the patient is such that there exists a normal inability to leave home and consequently, leaving home would require a considerable and taxing effort. Isolation Type: None Additional Instructions: Fortunately, we do not think your chest pain is due to your heart. Your cardiac catheterization looked good and unchanged from prior. We did not make any changes to your heart medications. I sent a prescription for pepcid to your pharmacy. This could potentially help with the symptoms you are having. You should follow up with Dr Valenzuela to see how things are going in the next few weeks. 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 - Follow Up Care Current Providers and Referrals: Patient,NotPresent [Unknown] - As per Instructions
[2018-02-18 11:51] VITALS: BP 144/75
--- NOTE | 2018-02-18 12:09 | ASMTLACE ---
LACE Length of stay for Answers: 2 days current admission Acuity / Level of Answers: Yes Care: Did the patient have an inpatient admission? Comorbidities - select Answers: Any tumor (including all that apply lymphoma or leukemia) Coronary Artery Disease Other Notes: HTN; HLD # of Emergency department Answers: 1-2 visits in the last 6 months Social determinants Answers: Mental health diagnosis (anxiety, depression, pers onality disorders, etc.) Score: 14 Date Signed: 02/18/2018 12:09 PM Electronically Signed By:Rhea Turner RN
--- NOTE | 2018-02-18 12:11 | ASMTDCNOTE ---
Case Management Discharge Discharge Order Complete? Answers: Yes Patient to Obtain Answers: via Family Medications Transportation Arranged Answers: Family/Friends Faxed Final Orders Answers: Yes Agency/Facility Transfer Answers: Yes Report Printed & Faxed to Receiving Agency Family Notified Answers: Yes Notes: in room Discharge Comments Notes: 02/18/2018 Case Management Note Pt to return to [facility] with . Notified [facility] of d/c. Faxed final orders. Case Management d/c poc: [facility] RN PT Date Signed: 02/18/2018 12:11 PM Electronically Signed By:Rhea Turner RN
--- NOTE | 2018-02-18 12:12 | ASDISCHSUM ---
Discharge Information Plan Status:Home with Home Health Medically Cleared to Leave:02/17/2018 Discharge Date:02/17/2018 CM D/C Disposition:Home Health Service ADT D/C Disposition:Home Health Service Projected Discharge Date:02/18/2018 11:00 AM Transportation at D/C:Family Discharge Delay Reason: Follow-Up Date:02/18/2018 11:00 AM Discharge Slot: Final Diagnosis: Placement Information Referral Type:*Home Health Care Services Referral ID:[id number] Provider Name:[facility] Address 1:[address] [facility] [address] Address 2: City:[place] Selection Factors: State:[place] Patient Contact Information Contact Name:MATHEUSNITODESIREE Relationship: Address:[phone] Work Phone: City:[place] Alternate Phone: State/Zip Code:[place] [address] Email: Financial Information Financial Class:Medicare Primary Plan Desc:MEDICARE INPATIENT Primary Plan Number:[id number] Secondary Plan Desc:[facility] [employer] [facility] [employer] Secondary Plan Number:[id number] Assessment Information LACE LACE Length of stay for Answers: 2 days current admission Acuity / Level of Answers: Yes Care: Did the patient have an inpatient admission? Comorbidities - select Answers: Any tumor (including all that apply lymphoma or leukemia) Coronary Artery Disease Other Notes: HTN; HLD # of Emergency department Answers: 1-2 visits in the last 6 months Social determinants Answers: Mental health diagnosis (anxiety, depression, pers onality disorders, etc.) Score: 14 Date Signed: 02/18/2018 12:09 PM Electronically Signed By:Rhea Turner RN [facility] Progress Note CM Note CM Note Notes: Pt discussed in rounds. CM met with pt and , Stephanie to discuss discharge needs. Pt agreed to [facility] RN and therapies, anticipating need for PT. is in agreement. CM faxed referral to [facility] and followed up with phone call.Pt accepted by [facility]. Pt lives at [facility] with his . Recieves Meals, housekeeping, and transportation. PCP is Dr. Darcy Valenzuela. Pt reports outpatient PT at [facility], but not currently. CM to follow. Plan: [facility] RN/PT Date Signed: 02/15/2018 12:47 PM Electronically Signed By:LUBA Alarcon [facility] Progress Note CM Note CM Note Notes: 02/17/2018 Case Management Note Met w/pt today during rounds. Pt to have a heart cath today after abnormal stress test yesterday. Updated [facility]. Case Management d/c poc: [facility] RN PT. Case Management to follow. Date Signed: 02/17/2018 03:54 PM Electronically Signed By:Rhea Turner RN Case Management Discharge Plan Note Case Management Discharge Discharge Order Complete? Answers: Yes Patient to Obtain Answers: via Family Medications Transportation Arranged Answers: Family/Friends Faxed Final Orders Answers: Yes Agency/Facility Transfer Answers: Yes Report Printed & Faxed to Receiving Agency Family Notified Answers: Yes Notes: in room Discharge Comments Notes: 02/18/2018 Case Management Note Pt to return to [facility] with . Notified [facility] of d/c. Faxed final orders. Case Management d/c poc: [facility] RN PT Date Signed: 02/18/2018 12:11 PM Electronically Signed By:Rhea Turner RN Intervention Information Intervention Type:*MARSHAL-Signed Date of Service:02/15/2018 11:38 AM Patient Type:Observation Staff Member:Jeaneth Mac Hours: Discipline: Severity: Comment:
== END 2018-02-18 12:50 | disposition home health service (06) | DRG 287 ==
LOC: F2W 10:53 → OBSVTOIN 02-15 13:41
PROVIDERS: ADMIT Internal Medicine; ATTEND Internal Medicine
DX: R07.9 Chest pain, unspecified (principal); I25.10 Atherosclerotic heart disease of native coronary artery without angina pectoris; E78.5 Hyperlipidemia, unspecified; R09.02 Hypoxemia; I10 Essential (primary) hypertension; G47.33 Obstructive sleep apnea (adult) (pediatric); M10.9 Gout, unspecified; K21.9 Gastro-esophageal reflux disease without esophagitis; E66.9 Obesity, unspecified; Z68.30 Body mass index [BMI] 30.0-30.9, adult; F32.9 Major depressive disorder, single episode, unspecified; Z95.5 Presence of coronary angioplasty implant and graft; Z96.643 Presence of artificial hip joint, bilateral; Z85.118 Personal history of other malignant neoplasm of bronchus and lung
CPT/HCPCS: 84484-PO; 97116-GP; 97161-GP; 97166-GO; 97530-GO; 97530-GP; 97535-GO; A9500; G0378; G8978-GP-CJ; G8979-GP-CI; G8987-GO-CI; G8988-GO-CI; J1644; J1650; J2250; J2785; J3010; Q9967